=== PATIENT | male | born 1960 | race Caucasian/White ===

== ENCOUNTER 2024-06-26 15:21 | Emergency (ER) | payer MEDICARE, OTHER, SELFPAY ==
--- NOTE | ~2024-06-26 | XR_ITS ---
XR knee LT 3V Ordering provider: Jessee Shannon MD History: . pain/swelling . Comparison: None. FINDINGS: BONES: No acute fracture or dislocation. JOINT SPACES: Narrowing of the medial compartment. SOFT TISSUES: Normal. IMPRESSION: No acute osseous abnormality left knee. Mild osteoarthritic changes Reviewed, dictated and finalized at location A.
[2024-06-26 15:22] VITALS: BP 148/75; PULSE 88; RESP 16; TEMP 36.2; O2SAT 96
[2024-06-26] MEDS: HYDROcodone/acetaminophen (*CRX) 5-325 MG TABLET 1 TAB PO (16:13)
--- NOTE | 2024-06-26 16:47 | ED_ITS ---
Temperature 97.2 F L 06/26/24 15:22 Pulse Rate 88 06/26/24 15:22 Respiratory Rate 16 06/26/24 15:22 Blood Pressure 148/75 H 06/26/24 15:22 Pulse Oximetry 96 06/26/24 15:22 Temperature 97.2 F L 06/26/24 15:22 Pulse Rate 88 06/26/24 15:22 Respiratory Rate 16 06/26/24 15:22 Blood Pressure 148/75 H 06/26/24 15:22 Pulse Oximetry 96 06/26/24 15:22 Discharge Plan Discharge Clinical Impression: Effusion of knee Patient Disposition: Home, Self-Care Condition: Stable Instructions: Swollen Knee Joint (ED), P.R.I.C.E. Treatment (ED) Additional Instructions: Return ER if you have worsening pain, your knee is red and hot, you develop fever over 100.4? F, or you have additional concerns. Follow up with her primary care doctor or an orthopedic surgeon for further evaluation. It is possible you have a torn meniscus but this also may just be an arthritic flare. Wear compressed should knee sleeve and ice your knee. Prescriptions: New naproxen 375 mg tablet 375 mg PO BID Qty: 14 0RF hydrocodone-acetaminophen 5-325 mg tablet 1 tablet PO Q6H PRN (Reason: pain) Qty: 12 0RF Follow-up/Referrals: Errol Raymond MD [Physician] - 1 Week UNKNOWN,DOCTOR [Primary Care Provider] - HPI - Extremity Injury (Lower) General Chief Complaint: Extremity Injury, Lower Stated Complaint: left knee injury Time Seen by Provider: 06/26/24 15:39 History of Present Illness HPI Narrative: Patient is a 63-year-old male who presents the ER with pain to the left knee. Worsening throughout the day associated with swelling. No fevers or chills. It is not red. It is tender over the medial aspect of the joint line. No known trauma but he has been doing a lot of work around house. Been taking anti- inflammatories without relief. Similar to a meniscus injury he has had on the right side in the past. Related Data Allergies Allergy/AdvReac Type Severity Reaction Status Date / Time No Known Allergies Allergy Verified 06/26/24 16:12 Review of Systems Constitutional: Constitutional: Reports no additional constitutional complaints Musculoskeletal: Musculoskeletal: Reports arthralgias, Reports joint swelling and Denies muscle cramps Integumentary/Breasts: Skin/Breast: Reports system reviewed and no additional complaints, except as docu Neurologic: Denies numbness and Denies weakness PMFSH Past Medical History Medical History (Updated 06/26/24 @ 19:20 by Jessee Shannon MD) Hyperlipidemia Hypertension Exam Narrative: GENERAL: Well-appearing, well-nourished, and in no acute distress. HEAD: Normocephalic, atraumatic. EXTREMITIES: Normal range of motion. No edema. Mild effusion left knee. Tender palpation over the anterior aspect of the MCL at the anterior joint line. No increased warmth or redness. SKIN: Warm, dry, no rash. NEURO: Alert and oriented x3. PSYCH: Normal mood and affect. Course Course Emergency Course: Likely MCL strain or potentially meniscal injury. Slight arthritis on x-ray with a very mild effusion. Discuss knee compression, elevation, ice, and anti- inflammatories. [place] for pain here. Vital Signs Vital signs: Vital Signs
== END 2024-06-26 17:02 | disposition home or self-care (01) ==
PROVIDERS: Emergency Provider Emergency Medicine
DX: M25.462 Effusion, left knee (principal); E78.5 Hyperlipidemia, unspecified; I10 Essential (primary) hypertension
CPT/HCPCS: 73562; 99283; A9270